=== PATIENT | female | born 1985 | race Caucasian/White ===

== ENCOUNTER → 2016-04-02 | Outpatient (CLI) | payer OTHER ==
[~2016-04-02] MED LIST: IBUP-1050 PO; LEVO50TA6 PO; PENI500T2 PO; PRENTAB65 PO
[2016-04-02 12:45] LABS: URINE APPEARANCE CLOUDY (CLEAR); URINE BILIRUBIN NEG (NEG); URINE COLOR DK YELLOW; URINE EPITHELIAL CELL AUTO >30 /lpf (0-5); URINE NITRITE NEG (NEG); URINE PH 6.5 (4.5-7.5); URINE SPECIFIC GRAVITY 1.018 (1.000-1.030); UROBILINOGEN NEG (NEG)
[2016-04-02 12:54] LABS: MANUAL MICROSCOPIC REQUIRED? NO; REVIEW REQ? NO
== END | disposition home or self-care (01) ==
LOC: C.LABSPEC 11:48
PROVIDERS: ATTEND Obstetrics & Gynecology
DX: O99.280 Endocrine, nutritional and metabolic diseases complicating pregnancy, unspecified trimester (principal); Z3A.00 Weeks of gestation of pregnancy not specified; E03.9 Hypothyroidism, unspecified

== ENCOUNTER → 2016-04-05 | Outpatient (CLI) | payer OTHER ==
[2016-04-07 00:22] LABS: CHLAMYDIA TRACH RNA*** NOT DETECTED (NOT DETECTED); GC (NEIS GONORRHOEAE)RNA** NOT DETECTED (NOT DETECTED)
== END | disposition home or self-care (01) ==
LOC: C.LABSPEC 13:41
PROVIDERS: ATTEND Obstetrics & Gynecology
DX: O99.280 Endocrine, nutritional and metabolic diseases complicating pregnancy, unspecified trimester (principal); Z3A.00 Weeks of gestation of pregnancy not specified

== ENCOUNTER → 2016-05-04 | Outpatient (CLI) | payer OTHER ==
[2016-05-04 12:08] LABS: COMPLETE YES; EOS % 0.9 %; HEMATOCRIT 34.6 % (37-47); IG% 0.2 %; LYMPH % 20.6 %; LYMPH ABS # 0.94 K/uL (1.2-3.4); MEAN CELL VOLUME 81.2 fL (80-100); MEAN CORPUSCULAR HEMOGLOBIN 27.7 pg (25-34); MEAN CORPUSCULAR HGB CONC 34.1 g/dl (32-36); MEAN PLATELET VOLUME 10.7 fL (7.4-10.4); MONO % 7.2 %; NEUT % 71.1 %; PLATELET COUNT 260 K/uL (130-400); RED BLOOD COUNT 4.26 M/uL (4.2-5.4); WHITE BLOOD COUNT 4.56 K/uL (4.8-10.8)
[2016-05-04 13:58] LABS: THYROID STIMULATING HORMONE 0.637 uIu/ml (0.300-4.500)
[2016-05-04 14:08] LABS: GTGD 50 Grams
== END | disposition home or self-care (01) ==
LOC: C.LAB1850 10:51
PROVIDERS: ATTEND Obstetrics & Gynecology
DX: O99.280 Endocrine, nutritional and metabolic diseases complicating pregnancy, unspecified trimester (principal)

== ENCOUNTER → 2016-06-01 | Outpatient (CLI) | payer OTHER ==
[2016-06-01 16:50] LABS: THYROID STIMULATING HORMONE 0.532 uIu/ml (0.300-4.500)
== END | disposition home or self-care (01) ==
LOC: C.LAB1850 14:50
PROVIDERS: ATTEND Obstetrics & Gynecology
DX: O99.280 Endocrine, nutritional and metabolic diseases complicating pregnancy, unspecified trimester (principal); E03.9 Hypothyroidism, unspecified

== ENCOUNTER → 2016-07-02 | Outpatient (CLI) | payer OTHER ==
[2016-07-02 12:36] LABS: THYROID STIMULATING HORMONE 0.597 uIu/ml (0.300-4.500)
== END | disposition home or self-care (01) ==
LOC: C.LAB1850 11:00
PROVIDERS: ATTEND Obstetrics & Gynecology
DX: O99.280 Endocrine, nutritional and metabolic diseases complicating pregnancy, unspecified trimester (principal); Z3A.00 Weeks of gestation of pregnancy not specified

== ENCOUNTER → 2016-08-15 | Outpatient (CLI) | payer OTHER ==
[2016-08-15 17:22] LABS: HEMATOCRIT 32.5 % (37-47)
[2016-08-15 18:33] LABS: GTGD 50 Grams
== END | disposition home or self-care (01) ==
LOC: C.LAB1850 17:02
PROVIDERS: ATTEND Obstetrics & Gynecology
DX: Z34.83 Encounter for supervision of other normal pregnancy, third trimester (principal)

== ENCOUNTER → 2016-08-15 | Outpatient (CLI) | payer OTHER ==
[2016-08-15 18:02] LABS: URINE APPEARANCE CLEAR (CLEAR); URINE BILIRUBIN NEG (NEG); URINE COLOR YELLOW; URINE EPITHELIAL CELL AUTO >30 /lpf (0-5); URINE NITRITE NEG (NEG); UROBILINOGEN NEG (NEG)
[2016-08-15 18:03] LABS: MANUAL MICROSCOPIC REQUIRED? NO; REVIEW REQ? NO
== END | disposition home or self-care (01) ==
LOC: C.LABSPEC 17:33
PROVIDERS: ATTEND Obstetrics & Gynecology
DX: Z34.83 Encounter for supervision of other normal pregnancy, third trimester (principal)

== ENCOUNTER → 2016-08-30 | Outpatient (CLI) | payer OTHER ==
[2016-08-30 15:01] LABS: THYROID STIMULATING HORMONE 0.78 uIu/ml (0.300-4.500)
== END | disposition home or self-care (01) ==
LOC: C.LAB1850 12:31
PROVIDERS: ATTEND Obstetrics & Gynecology
DX: O99.283 Endocrine, nutritional and metabolic diseases complicating pregnancy, third trimester (principal)

== ENCOUNTER → 2016-09-27 | Outpatient (CLI) | payer OTHER | END | disposition home or self-care (01) | LOC: C.LABSPEC 17:40 | PROVIDERS: ATTEND Obstetrics & Gynecology | DX: Z34.83 Encounter for supervision of other normal pregnancy, third trimester (principal) ==

== ENCOUNTER 2016-10-20 16:54 | Inpatient (IN) | payer OTHER ==
[~2016-10-20] VITALS: Ht 154.9 cm; Wt 68.3 kg
[~2016-10-20 16:54] MED LIST changes: -LEVO50TA6 PO; -PRENTAB65 PO
[2016-10-20 17:42] VITALS: Ht 154.9 cm; Wt 68.3 kg
[2016-10-20] MEDS ORDERED: LEVO50TA6 PO (17:47)
[2016-10-20] MEDS ORDERED: PRENTAB65 PO (17:47)
[2016-10-20] MEDS ORDERED: LACTATED RINGER'S 1000ML 1,000 ML IV SCH (17:50)
[2016-10-20] MEDS ORDERED: LACTATED RINGER'S 1000ML 1,000 ML IV PRN (17:50)
[2016-10-20] MEDS ORDERED: BUPIVACAINE 0.25% 30 ML VIAL ONE (17:59)
[2016-10-20] MEDS ORDERED: EpHEDrine SULFATE INJ 50 MG/ML AMP ONE (17:59)
[2016-10-20] MEDS ORDERED: FENTANYL 2MCG/ML ROPIV 1.25MG/ML 100ML BAG EPI ONE (18:00)
[2016-10-20] MEDS ORDERED: FENTANYL CITRATE INJ 50 MCG/1 ML 2 ML VIAL ONE (18:00)
[2016-10-20 18:15] LABS: HEMATOCRIT 40.2 % (37-47); MEAN CELL VOLUME 83.1 fL (80-100); MEAN CORPUSCULAR HEMOGLOBIN 27.3 pg (25-34); MEAN CORPUSCULAR HGB CONC 32.8 g/dl (32-36); MEAN PLATELET VOLUME 10.8 fL (7.4-10.4); PLATELET COUNT 206 K/uL (130-400); RED BLOOD COUNT 4.84 M/uL (4.2-5.4); WHITE BLOOD COUNT 10.59 K/uL (4.8-10.8)
[2016-10-20] MEDS ORDERED: LACTATED RINGER'S 1000ML 500 ML IV PRN (19:10)
[2016-10-20] MEDS ORDERED: NALOXONE HCL INJ 1 MG in SODIUM CHLORIDE 0.9% 1000ML 1,000 ML IV PRN (19:10)
[2016-10-20] MEDS ORDERED: OXYTOCIN 30 UNITS/500ML NSS IV ONE (19:14)
[2016-10-20] MEDS ORDERED: FENTANYL 2MCG/ML ROPIV 1.25MG/ML 100ML BAG EPI PRN (19:15)
[2016-10-20] MEDS ORDERED: DiphenhydrAMINE HCL 50 MG/ML VIAL IV PRN (19:15)
[2016-10-20] MEDS ORDERED: PROMETHAZINE HCL INJ 6.25 MG in SODIUM CHLORIDE 0.9% 50ML 50 ML IV PRN (19:15)
[2016-10-20] MEDS ORDERED: ONDANSETRON INJ 2 MG/ML 2 ML VIAL IV PRN (19:15)
[2016-10-20] MEDS ORDERED: NALOXONE HCL INJ 0.4 MG/1 ML VIAL/CARP IV PRN (19:15)
[2016-10-20] MEDS ORDERED: NALBUPHINE HCL INJ 10 MG/ML AMP IV PRN (19:15)
[2016-10-20] MEDS ORDERED: EpHEDrine SULFATE INJ 50 MG/ML AMP IV PRN (19:15)
[2016-10-20] MEDS ORDERED: SUPERCREAM 0.870 % 15GM JAR EXT PRN (19:30)
[2016-10-20] MEDS ORDERED: ACETAMINOPHEN 325 MG TAB PO PRN (19:30)
[2016-10-20] MEDS ORDERED: DIPHTHERIA/TETANUS/PERTUSSIS 0.5 ML SYR/VIAL IM. ONE (19:30)
[2016-10-20] MEDS ORDERED: OXYTOCIN 30 UNITS/500ML NSS IV PRN (19:30)
[2016-10-20] MEDS ORDERED: HYDROCORTISONE ACETATE 25 MG SUPP PR PRN (19:30)
[2016-10-20] MEDS ORDERED: LANOLIN OINT EXT PRN ×2 (19:30)
[2016-10-20] MEDS ORDERED: ACETAMINOPHEN/CODEINE 300/30MG TAB PO PRN ×2 (19:30)
[2016-10-20] MEDS ORDERED: BENZOCAINE 20% AER SPR 82.5 GM CAN EXT PRN (19:30)
--- NOTE | 2016-10-20 21:31 | Anesthesia Procedure Note ---
Anesthesia Epidural Removal Nt Date & Time Oct 20, 2016 at 21:30 Vital Signs Pain Intensity: 0.0 Notes Mental Status: alert / awake / arousable, participated in evaluation Nausea / Vomiting: adequately controlled Pain: adequately controlled Airway Patency, RR, SpO2: stable & adequate BP & HR: stable & adequate Hydration State: stable & adequate Neuraxial Anesthesia: was administered Anesthetic Complications: no major complications apparent, pt satisfied with anesthetic care Epidural: removed without complications, with tip intact
[2016-10-20 22:30] VITALS: BP 97/60; PULSE 106; TEMP 37.6; O2SAT 98
[2016-10-21] MEDS: DOCUSATE SODIUM 100 MG CAP PO SCH ×3 (00:05→20:17)
[2016-10-21 04:05] VITALS: BP 117/71; PULSE 75; TEMP 36.7; O2SAT 96
[2016-10-21] MEDS: IBUPROFEN 600 MG TAB PO PRN ×3 (04:55→20:17)
--- NOTE | 2016-10-21 06:38 | DELIVERY SUMMARY ---
DATE OF OPERATION: 10/20/2016 FINDINGS OF DELIVERY: Viable female with Apgars of 8 and 9. Baby delivered spontaneously over an intact perineum, moderate meconium, and good vigorous cry at terminating meconium resuscitation. Cord gases and cord blood samples obtained. Placenta delivered spontaneously. Estimated blood loss was 300 mL. DESCRIPTION OF DELIVERY: The patient is a 31-year-old 3, para 2 with an EDC of 24 October by first trimester ultrasound who was admitted in active labor. The patient showed up on labor and delivery stating contractions had begun earlier in that day. She denied rupture of membranes or vaginal bleeding. The patient had had a benign course, blood type O positive, antibody negative, rubella immune, hepatitis B negative. She declined a quad screen. She had a normal 1-hour Glucola x2 and she had a negative third trimester beta strep culture. Admission physical examination showed a gravid female in no acute distress. Cervix was 3 cm dilated, 50% effaced and -1 station; tracing was category 2. The patient was observed because there had been no cervical change from her appointment 3 days earlier. Shortly, thereafter, though she had spontaneous rupture of membranes or moderate meconium, contractions increased in intensity, anesthesia was consulted and an epidural was placed. Following placement of the epidural, the patient progressed rapidly to full dilatation and began her second stage. She pushed for approximately 10 minutes delivering the viable female . Because of the meconium, the cord was clamped and cut and the baby was taken over to the resuscitation stand. There was good vigorous cry terminating the meconium resuscitation. Cord gases and cord blood samples obtained. Placenta was delivered spontaneously and sent for pathological evaluation. Inspection of the perineum showed this to be intact. Estimated blood loss was 300 mL. Sponge and needle count was correct. I attest to the content of the Intraoperative Record and any orders documented therein. Any exception s are noted below.
[2016-10-21 07:30] VITALS: BP 96/63; PULSE 50; TEMP 36.6
--- NOTE | 2016-10-21 07:33 | Progress Note ---
Subjective Oct 21, 2016. Subjective conversation w/ patient, physical exam Ambulation: ambulating normally Feeding Type: Breast Feeding Objective Vital Signs Date Time Temp Pulse Resp B/P (MAP) Pulse Ox O2 Delivery O2 Flow Rate FiO2 10/21/16 04:05 36.7 75 16 117/71 (86) 96 Room Air 10/20/16 22:30 Room Air 10/20/16 22:30 37.6 106 16 97/60 (72) 98 Room Air Physical Exam General Appearance: WELL-APPEARING, NO APPARENT DISTRESS Fundus: Firm, Non-Tender Extremities: no calf tenderness Laboratory Results Last 24 Hours Test 10/20/16 18:05 10/21/16 07:02 White Blood Count 10.59 K/uL Red Blood Count 4.84 M/uL Hemoglobin 13.2 g/dL 11.5 g/dL Hematocrit 40.2 % 34.0 % Mean Corpuscular Volume 83.1 fL Mean Corpuscular Hemoglobin 27.3 pg Mean Corpuscular Hemoglobin Concent 32.8 g/dl RDW Standard Deviation 42.4 fL RDW Coefficient of Variation 14.1 % Platelet Count 206 K/uL Mean Platelet Volume 10.8 fL Assessment and Plan Post- Day#: 1 Continue Routine Care: - routine care - doing well
[2016-10-21] MEDS: FERROUS SULFATE 325 MG TAB PO SCH (08:00)
[2016-10-21] MEDS: PRENATAL VITAMIN TAB PO SCH (08:00)
[2016-10-21] MEDS: LEVOTHYROXINE 50 MCG TAB PO SCH (08:00)
[2016-10-21 11:00] VITALS: BP 100/68; PULSE 81; TEMP 36.7; O2SAT 98
[2016-10-21 16:30] VITALS: BP 98/61; PULSE 79; TEMP 36.8
[2016-10-21] MEDS ORDERED: BISACODYL 5 MG TABEC PO SCH (20:00)
[2016-10-21 20:25] VITALS: BP 98/65; PULSE 68; TEMP 36.8
--- NOTE | 2016-10-21 21:28 | Discharge Instructions ---
Discharge Instructions Date of Service Oct 21, 2016. Admission Reason for Admission: Check Labor Discharge Discharge Diagnosis / Problem: Delivery Discharge Goals Goal(s): Routine recovery after delivery Medications Continue Dispensed Medications: supercream, dermaplast, tucks, lansinoh Activity Recommendations Activity Limitations: per Instructions/Follow-up section . Instructions / Follow-Up Instructions / Follow-Up ACTIVITY RECOMMENDATIONS: * Gradual return to full activity over the next 2-3 weeks. * No lifting - nothing heavier than baby over the next 2-3 weeks. * Do not engage in vigorous exercise, sexual activity or sports until cleared by your physician. * Do not drive or operate any motorized equipment until cleared by your physician. * You may shower/bathe daily. MEDICATIONS: For discomfort or pain, you may use Acetaminophen (Tylenol), Ibuprofen (Advil), or Naproxen (Aleve) following the package directions. For constipation you may use Colace following the package directions. BREAST CARE: If you are not breast feeding: * Wear a supportive bra 24 hours a day for one to two weeks. * Avoid stimulating your breasts and nipples as much as possible during the first few weeks after delivery. * When taking a shower, have the warm water hit your back, not breasts. * When your breasts feel full, apply ice packs. Usually three to four times a day helps ease the discomfort. * Take a mild pain medication (Tylenol / Motrin) when you are uncomfortable. If breast feeding: * Use breast milk to lubricate nipples. Lansinoh cream may be used for sore nipples. You do not need to remove cream prior to breast feeding. If using a different brand of cream, check the label for directions regarding removal of cream prior to nursing. * Wear a supportive bra. * If having problems with breasts or breast feeding, call a employment consultant or your health care provider. EPISIOTOMY CARE: After delivery, if you have an episiotomy (stitches), the following steps will ease discomfort and aid healing. * For the first 24 hours after delivery, place ice packs next to your episiotomy to help reduce swelling. * After the first 24 hour-period, sitz baths, either portable or in the tub, are suggested. A shower with a shower arm sprayed over the episiotomy may be comforting. * Marcelina care should be done after each voiding and bowel movement. Squirt warm water from a plastic bottle over the perineum (region of the body between the anus and urinary opening) and pat dry. * Use Dermoplast to ease discomfort. Shake container. [place] directly over the episiotomy. Place a Tucks on a clean sanitary pad next to your episiotomy. SPECIAL CARE INSTRUCTIONS: When you are discharged from the hospital, it is important for you to follow the instructions listed below: * During the first week at home, you should be able to care for yourself and your baby. In addition, the usual light household activities are encouraged. * Limit your activities to the way you feel. Do not try to clean the house or move furniture. Be sensible. * If you actively engage in sports and have done so up until the time of your delivery, you may resume these activities as soon as you feel able. This may take up to one month or even longer. Use good judgment. * Continue to take your vitamins for at least six weeks after the of your baby. * Your diet need not be limited unless you were on a special diet before your delivery. Breast-feeding mothers need around 2500 calories per day and at least 64-80 ounces of fluid per day (8 to 10 glasses). * You should eat foods from the four major food groups. Crash diets or fad diets are to be avoided. Eating lean meats, fresh fruits and vegetables, low-fat dairy products, high fiber foods and a regular exercise program, will help you get back to your pre- weight without putting your health at risk. * Constipation is sometimes a problem after delivery. Take a mild laxative as needed. If breast feeding, Milk of Magnesia is acceptable to use. You may use a suppository or Fleets enema if no episiotomy. * A daily shower or tub bath is suggested. Be sure to thoroughly and gently dry the perineum. * A bloody vaginal discharge will usually continue until around four weeks post . A small amount of bleeding may continue for as long as six weeks. Vaginal discharge changes from the bright red bleeding after delivery to pink then brownish and finally yellowish-pink before becoming white and disappearing. * Bleeding may increase with activity. Your first period may come in 4-8 weeks. If you are breast feeding, your period may be delayed even longer. * [place] (sex) can begin whenever both you and your partner feel comfortable and do not have any form of genital infection. It is recommended that you wait at least six weeks for internal and external healing to occur. If you have questions, please talk to your health care practitioner. A condom should be used to prevent infection and . * Foreplay, gentle intercourse and lubrication is very important the first several times to prevent pain. A water-based lubricant such as K-Y jelly or Astroglide may be used. * If you have RH negative blood and your baby is RH positive, you will receive RHOGAM by injection prior to discharge. The nurse will give you a card to keep with you that has the date and place that you received RHOGAM after delivery. * During your care, you had a Rubella screen done to check for the presence of rubella antibodies in your blood. If your test was negative, you will receive a Rubella vaccine prior to discharge. This vaccine may cause a fever, soreness at the injection site and flu-like symptoms. If these symptoms persist, notify your health care practitioner. is not advised for one month after a Rubella vaccine. * Verbalizes understanding of car seat law as reviewed with patient nursing. * Car Seat hand-out given and reviewed with patient by nursing. * Shaken baby information reviewed with patient by nursing. Call you doctor if: * Heavy bleeding (saturating several pads an hour) or passing clots the size of your fist. * A fever >101 degrees F (38.3 degrees C) on two occasions four hours apart and /or chills. * Unusual pain in the pelvic or vaginal areas. * "Baby Blues" lasting longer than two weeks. If you have any questions or concerns, call your health care practitioner at . FOLLOW UP VISIT: * Please call the office at to schedule a 6 week examination. It is important you keep this appointment. It is important for you to make arrangements for either yearly or twice yearly check-ups thereafter. Current Hospital Diet Patient's current hospital diet: Regular OB Diet Discharge Diet Recommended Diet: Regular Diet Pending Studies Studies pending at discharge: no Medical Emergencies . Who to Call and When: Medical Emergencies: If at any time you feel your situation is an emergency, please call [phone] immediately. . Non-Emergent Contact Non-Emergency issues call your: Primary Care Provider . . "Provider Documentation" section prepared by Viridiana Valero. . VTE Core Measure Inpt VTE Proph given/why not?: Treatment not indicated
[2016-10-21 23:15] VITALS: BP 98/64; PULSE 80; TEMP 36.8
--- NOTE | 2016-10-22 06:55 | OB/GYN Progress Note ---
[employer] Progress Note Date of Service Oct 22, 2016. Subjective conversation w/ patient, physical exam, chart review, lab review Ambulation: ambulating normally Voiding: no voiding problems Passing Gas: Yes Diet Tolerance: Regular Diet Lochia: Moderate Feeding Type: Breast Feeding Pain: controlled Review of Systems Respiratory: No shortness of breath Cardiac: No chest pain Abdomen: No nausea, No vomiting Female : No dysuria Objective Vital Signs Date Time Temp Pulse Resp B/P (MAP) Pulse Ox O2 Delivery O2 Flow Rate FiO2 10/21/16 23:15 Room Air 10/21/16 23:15 36.8 80 18 98/64 (75) Room Air 10/21/16 20:25 36.8 68 18 98/65 (76) Room Air 10/21/16 16:30 36.8 79 18 98/61 (73) Room Air 10/21/16 16:30 Room Air 10/21/16 11:00 36.7 81 16 100/68 (79) 98 Room Air 10/21/16 08:10 Room Air 10/21/16 07:30 36.6 50 18 96/63 (74) Room Air Physical Exam General Appearance: WELL-APPEARING, WD/WN, NO APPARENT DISTRESS Respiratory/Chest: lungs clear, normal breath sounds, no respiratory distress Cardiovascular: regular rate, rhythm, no JVD Abdomen: normal bowel sounds, soft Fundus: Firm, Tender (appropriately tender), Relation to Umbilicus (2 below U) Extremities: no calf tenderness Laboratory Results Last 24 Hours Test 10/21/16 07:02 Hemoglobin 11.5 g/dL Hematocrit 34.0 % Assessment and Plan Post- Day Number: 1 Continue Routine Care: - Vital Signs reviewed and WNL. - Blood Type: O+, GBS - , Rubella Immune. - Pt is doing well clinically. - Encourage Ambulation, Monitor and Control pain with Motrin PRN, Resume regular diet, Monitor Lochia - Encourage Breast Feeding. - Pt counselled on discharge instructions. MIKAYLA VALERO PGY1 FM RESIDENT Resident Physician Supervision Note: I interviewed and examined the patient. Discussed with Dr. Valero and agree with findings and plan as documented in the note. Any exceptions or clarifications are listed here: [None] Documented By: Soham Walker Resident Tracking Resident Involvement: Resident Care Provided Care Provided: OB Delivery
[2016-10-22] MEDS: LEVOTHYROXINE 50 MCG TAB PO SCH (07:21)
[2016-10-22] MEDS: PRENATAL VITAMIN TAB PO SCH (08:08)
[2016-10-22] MEDS: FERROUS SULFATE 325 MG TAB PO SCH (08:08)
[2016-10-22] MEDS: DOCUSATE SODIUM 100 MG CAP PO SCH (08:08)
[2016-10-22 10:15] VITALS: BP 99/66; PULSE 71; TEMP 36.6
[2016-10-22 16:30] VITALS: BP 91/59; PULSE 86; TEMP 36.9; O2SAT 98
[2016-10-22] MEDS: IBUPROFEN 600 MG TAB PO PRN (18:40)
== END 2016-10-22 19:50 | disposition home or self-care (01) | DRG 775 ==
LOC: C.OPB 16:54 → C.LD 16:55 → C.OPB 17:52 → C.LD 17:52 → C.OBG 22:33
PROVIDERS: ADMIT Obstetrics & Gynecology; ATTEND Obstetrics & Gynecology
PROC: 10E0XZZ Delivery of Products of Conception, External Approach (ICD-10-PCS; principal; 2016-10-20)
DX: O80 Encounter for full-term uncomplicated delivery (principal); Z37.0 Single live birth; Z3A.39 39 weeks gestation of pregnancy

== ENCOUNTER → 2016-12-28 | Outpatient (CLI) | payer OTHER ==
[~2016-12-28] MED LIST changes: -IBUP-1050 PO; +LEVO50TA6 PO; -PENI500T2 PO; +PRENTAB65 PO
[2016-12-28 12:18] LABS: PREG INTERNAL NEGATIVE QC NEG CLEAR BACKGROUND; PREG INTERNAL POSITIVE QC POS CONTROL LINE
== END | disposition home or self-care (01) ==
LOC: C.LAB 10:26
PROVIDERS: ATTEND Physician Assistant
DX: Z30.9 Encounter for contraceptive management, unspecified (principal)